=== PATIENT | male | born 1990 | race Caucasian/White ===

== ENCOUNTER 2023-11-15 15:07 | Emergency (ER) | payer SELFPAY ==
[~2023-11-15] VITALS: Ht 177.8 cm; Wt 92.0 kg
[2023-11-15 15:11] VITALS: O2SAT 98
[2023-11-15] MEDS: SODIUM CHLORIDE 0.9% 1,000 ML IV ONE ×2 (16:38→16:39)
[2023-11-15 16:49] LABS: CHLORIDE 103 mEq/L (98-107); SODIUM 136 mEq/L (136-145)
[2023-11-15 16:50] LABS: CARBON DIOXIDE 25 mEq/L (21-32)
[2023-11-15 16:51] LABS: CALCIUM 9.7 mg/dL (8.7-10.4)
[2023-11-15 16:53] LABS: BASOPHILS % 0.3 % (0.0-2.0); EOSINOPHILS % 0.4 % (0.0-5.0); HEMATOCRIT. 41.6 % (42.0-52.0); HEMOGLOBIN. 14.1 g/dL (14.0-18.0); LYMPHOCYTES % 8.2 % (20.0-50.0); MEAN CORPUSCULAR HEMOGLOBIN 29.2 pg (28.0-32.0); MEAN CORPUSCULAR HGB CONC 33.8 g/dL (31.0-37.0); MEAN CORPUSCULAR VOLUME 86.2 fL (80.0-94.0); MEAN PLATELET VOLUME 7.9 fl (7.4-10.4); MONOCYTES % 5.7 % (2.0-8.0); NEUTROPHILS % 85.4 % (40.0-76.0); PLATELET 338 x1000/uL (130-400); RED BLOOD CELL COUNT 4.83 mill/uL (4.7-6.1); RED CELL DISTRIBUTION WIDTH 15.6 % (11.6-14.6); WHITE BLOOD COUNT 10.3 x1000/uL (4.5-11.0)
[2023-11-15 16:55] LABS: CREATININE 1.1 mg/dL (0.6-1.3)
[2023-11-15 16:56] LABS: GLUCOSE 116 mg/dL (70-105); UREA NITROGEN BLOOD 14 mg/dL (9-23)
[2023-11-15 18:04] LABS: CLARITY URINE CLEAR (CLEAR); COLOR URINE YELLOW (YELLOW); GLUCOSE URINE NEGATIVE (NEGATIVE); KETONES URINE NEGATIVE (NEGATIVE); LEUKOCYTE ESTERASE URINE NEGATIVE (NEGATIVE); NITRITE URINE NEGATIVE (NEGATIVE); OCCULT BLOOD URINE NEGATIVE (NEGATIVE); PH URINE 6.5 (4.5-8.0); PROTEIN URINE NEGATIVE (NEGATIVE); SPECIFIC GRAVITY URINE 1.024 (1.005-1.030)
[2023-11-15 18:34] VITALS: BP 128/54; PULSE 99; RESP 18; TEMP 98.4
== END 2023-11-15 18:37 | disposition home or self-care (01) ==
LOC: ER 15:07
DX: R55 Syncope and collapse (principal); I10 Essential (primary) hypertension
CPT/HCPCS: 80048; 81003; 85025; 36415; 99283; J7030; Z7610 ×2